=== PATIENT | female | born 1935 | race Caucasian/White ===

== ENCOUNTER 2021-09-27 12:54 | Emergency (ER) | payer BC ==
[~2021-09-27] VITALS: Ht 170.2 cm; Wt 47.6 kg
[2021-09-27 12:56] VITALS: BP 159/105
--- NOTE | 2021-09-27 13:13 | NUR ---
ATTEMPTED TO CALL PTS SON WHO LIVES WITH PT, NUMBER PROVIDED BY MEDICS WENT STRAIGHT TO [employer] AND WAS NOT ABLE TO LEAVE [employer] IT HAS NOT BEEN SET UP YET.
--- NOTE | 2021-09-27 13:43 | NUR ---
85YO FEMALE PT BIBA FROM HOME C/O SOB AND BACK PAIN XTODAY. PER [facility] ,PT CALLED AND STATES SHE TOOK O2 AT HOME WHICH WAS "LOW AND AT 99%". PT AAOX2 TO NAME AND PLACE WITH EPISODES OF CONFUSION AND UNSURE OF WHY SHES HERE. PT STATES DISCOMFORT IN MID UPPER BACK. NO PHYSICAL INJURY NOTED. PT HAS FULL ROM OF EXTREMETIES W/O DISCOMFORT. DENIES CHEST PAIN OR N/V/D AT THIS TIME. NO VISIBLE DISTRESS, RESPIRATIONS EVEN AND UNLABORED. SKIN WARM AND INTACT. PT AMBULATORY W/ CANE . PT ON MONITOR, BED AT LOWEST POSITION BED RAIL UPX2. HX: HTN , SEIZURES NKA
--- NOTE | 2021-09-27 14:27 | NUR ---
PT DAUGHTER CONTACTED. DAUGHTER UPDATED OF PT STATUS AND TO ARRANGE PT TRANSPORT HOME.
--- NOTE | 2021-09-27 14:29 | NUR ---
LALI PISANO - [facility] [phone]
[2021-09-27] MEDS ORDERED: AZIT250T4 PO (14:39)
--- NOTE | 2021-09-27 14:49 | NUR ---
[employer] IN [employer] TO PICK PT UP AT D/C PER DAUGHTER REQUEST. KRYSTIAN PISANO [phone]
[2021-09-27 14:50] VITALS: BP 149/96
--- NOTE | 2021-09-27 15:08 | NUR ---
Patient discharged with v/s stable. Written and verbal after care instructions FOR SOB AND PNEUMONIA given and explained. Patient alert, oriented and verbalized understanding of instructions. Wheel Chair Assisted with to car. All questions addressed prior to discharge. ID band removed. Patient advised to follow up with PMD. Rx of ZITHROMAX Z PACK given. Opportunity to ask questions provided and answered. D/C INFO EXPLAINED TO AND SIGNED BY SON IN LAW [place]
== END 2021-09-27 15:08 | disposition home or self-care (01) ==
LOC: MED 12:54
DX: J18.9 Pneumonia, unspecified organism (principal); M54.9 Dorsalgia, unspecified; Z79.899 Other long term (current) drug therapy
CPT/HCPCS: 71045; 99283; Q0092